=== PATIENT | female | born 1980 | race Caucasian/White ===

== ENCOUNTER 2016-06-13 07:04 | Emergency (ER) | payer OTHER ==
[~2016-06-13] VITALS: Ht 162.6 cm; Wt 74.8 kg
[2016-06-13 08:51] VITALS: BP 122/79
== END 2016-06-13 08:51 | disposition home or self-care (01) ==
LOC: ED 07:04
DX: S20.211A Contusion of right front wall of thorax, initial encounter (principal); F93.0 Separation anxiety disorder of childhood; F43.10 Post-traumatic stress disorder, unspecified; F17.210 Nicotine dependence, cigarettes, uncomplicated; W22.8XXA Striking against or struck by other objects, initial encounter; Y93.89 Activity, other specified; Y92.89 Other specified places as the place of occurrence of the external cause; Y99.8 Other external cause status